=== PATIENT | female | born 1990 | race Caucasian/White ===

== ENCOUNTER 2017-11-11 23:55 | Emergency (ER) | payer OTHER ==
[2017-11-12 00:01] VITALS: BP 119/90
--- NOTE | 2017-11-12 00:04 | EDM.PDOC ---
ED HPI GENERAL MEDICAL PROBLEM - General Chief Complaint: Head Injury Stated Complaint: [facility] Time Seen by Provider: 11/12/17 00:04 Source of Information: Reports: Patient History Limitations: Reports: Intoxication - History of Present Illness INITIAL COMMENTS - FREE TEXT/NARRATIVE: 27-year-old female presents to the ED per ambulance after reportedly falling backwards from the standing position. This is provided by the patient. She fell backward striking the back of her head on the bar room floor. Questionable whether there was temporary loss of consciousness. She has a throbbing pounding headache with associated nausea without vomiting at this time. She denies any other injuries. Of note the patient is significantly intoxicated by alcohol with dysarthric speech and nystagmus. She complains about pain across the occipital aspect of her scalp. Denies any neck pain. Range of motion of her neck is normal. No other injuries apparent Onset: Today Onset Date: 11/11/17 Onset Time: 23:40 Duration: Minutes: Location: Reports: Head (Occipital aspect of her head) Quality: Reports: Ache, Throbbing, Other Severity: Moderate (Pounding headache) Improves with: Reports: Rest Worsens with: Reports: Movement Context: Reports: Other (Intoxicated by alcohol and apparently just tipped over backwards falling to the floor from a standing position.). Denies: Activity, Exercise, Lifting, Sick Contact, Trauma Associated Symptoms: Reports: Headaches, Nausea/Vomiting (Nausea without vomiting). 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 Social & Family History - Family History OBGYN: Reports: Endometriosis, Other (See Below) Other OBGYN Family History: ovarian cancer ,cancer polyps Musculoskeletal: Reports: Arthritis Neurological: Reports: None Endocrine/Metabolic: Reports: Diabetes, type II Hematologic: Reports: Anemia Dermatologic: Reports: Eczema Oncologic: Reports: Ovarian, Other (See Below) Other Oncologic Family History: melanoma on father - Living Situation & Occupation Living situation: Reports: Single Occupation: Employed ED ROS GENERAL - Review of Systems Review Of Systems: See Below Constitutional: Reports: No Symptoms HEENT: Reports: Contact Lenses Respiratory: Reports: No Symptoms Cardiovascular: Reports: No Symptoms Endocrine: Reports: No Symptoms GI/Abdominal: Reports: No Symptoms : Reports: No Symptoms Musculoskeletal: Denies: Neck Pain, Shoulder Pain, Arm Pain, Back Pain, Hand Pain, Leg Pain, Foot Pain, Joint Pain, Joint Swelling Skin: Reports: No Symptoms Neurological: Reports: Headache, Difficulty Walking Psychiatric: Reports: No Symptoms Hematologic/Lymphatic: Reports: No Symptoms Immunologic: Reports: No Symptoms ED EXAM, HEAD INJURY - Physical Exam Exam: See Below Exam Limited By: Intoxication (By alcohol.) General Appearance: Alert Head: Scalp Hematoma (Mild hematoma of the occipital scalp midline.), Scalp Tenderness, Other (No open wounds or lacerations). No: Active Bleeding ( Occipital scalp midline), Adkins's Sign, Flap, Facial Abrasions Nexus Criteria: No: Posterior, Midline Cervical Tenderness, Evidence of Intoxication, Altered Level of Consciousness, Focal Neurological Deficit, Painful Distraction Injuries Eyes: Bilateral Eye: Nystagmus (On bilateral lateral gaze.) Ears: Normal TMs Nose: Other (Nose ring anterior naris with no signs of trauma.) Throat/Mouth: Normal Inspection, Normal Lips, Normal Teeth, Normal Oropharynx, Other (No dental or tongue injuries.) Neck: Non-Tender, Full Range of Motion, Normal Alignment, Normal Inspection Respiratory: No Respiratory Distress, Lungs Clear, Normal Breath Sounds, No Accessory Muscle Use, Chest Non-Tender Cardiovascular: Normal Peripheral Pulses, Regular Rate, Rhythm, No Gallop, No Murmur GI/Abdominal Exam: Normal Bowel Sounds, Soft, Non-Tender, No Organomegaly Extremities: Normal Inspection, Normal Range of Motion, Non-Tender, No Pedal Edema, Other (No evidence injuries to her elbows wrists hands or and shoulders. Knees are normal hips are normal) Neurologic: Other (Ataxic gait) Skin: Normal Color, Warm/Dry - [place] Coma Score Best Eye Response (Farnsworth): (4) Open Spontaneously Best Verbal Response (Patrice): (5) Oriented Best Motor Response (Patrice): (6) Obeys Commands Farnsworth Total: 15 Course - Vital Signs Last Recorded V/S: Last Vital Signs Temp 35.9 C 11/11/17 23:56 Pulse 90 11/11/17 23:56 Resp 18 11/11/17 23:56 BP 119/90 11/11/17 23:56 Pulse Ox 99 11/11/17 23:56 - Orders/Labs/Meds Orders: Active Orders 24 hr Category Date Time Status Head wo Cont [CT] Stat Exams 11/12/17 00:16 Taken Meds: Medications Discontinued Medications Generic Name Dose Route Start Last Admin Trade Name Gadiel PRN Reason Stop Dose Admin Ondansetron HCl 4 mg 11/12/17 00:23 11/12/17 00:39 Zofran Odt PO 11/12/17 00:24 4 mg ONETIME ONE Administration - Radiology Interpretation Free Text/Narrative:: 27-year-old female reports to the ED per ambulance after falling in a local bar. Apparently she simply fell over backward striking the occipital aspect of her head on the bar room floor. It's questionable whether is transient loss of conscious. The details of what happened to her fuzzy because she is very impaired by alcohol. Clinically she shows no signs of neck injury. She does have a mild scalp hematoma of the exceptional scalp without open wound or active bleeding. CT head to be done since she is nauseated and has a severe headache. - Re-Assessments/Exams Free Text/Narrative Re-Assessment/Exam: 11/12/17 01:27 CT of the head reported as normal by the red. I had some concerns about a small intraparenchymal hemorrhage at the occipital prominence that this may be a variation of normal. She'll be discharged to home in the care of her boyfriend but he too is impaired by alcohol and they will be taking a cab home. Departure - Departure Time of Disposition: 01:28 Disposition: Home, Self-Care 01 Condition: Fair Clinical Impression: Minor closed head injury Fall Qualifiers: Encounter type: initial encounter Qualified Code(s): W19.XXXA - Unspecified fall, initial encounter - Discharge Information *PRESCRIPTION DRUG MONITORING PROGRAM REVIEWED*: No *COPY OF PRESCRIPTION DRUG MONITORING REPORT IN PATIENT DAMIEN: No Forms: ED Department Discharge Additional Instructions: Evaluation in the emergency room this morning in regards to a fall at one of the local bars. History is that she fell backwards directly onto the back of your head. No reported loss of consciousness . Reportedly mildly dazed. Associated nausea and headache when you arrived in the ED. Probable small scalp hematoma over the occipital scalp appreciated on exam. Neck showed no signs of injury. You had full unopposed range of motion and no other injuries were identified on exam. You are of course significantly inebriated by alcohol. CT scan of your head was therefore performed to rule out any intracranial bleeding or skull fractures and none were found. CT of the brain and head was found to be within normal limits. May use Tylenol or Motrin for headache relief as needed. You're given Zofran 4 mg under the tongue in the ED for nausea relief. Chest home to sleep. Expect neck muscles to perhaps be more stiff and sore tomorrow and perhaps the next day. If you have vomiting more than twice or worsening headache over the next 12-24 hours. - My Orders Last 24 Hours: My Active Orders 11/12/17 00:16 Head wo Cont [CT] Stat - Assessment/Plan Last 24 Hours: My Active Orders 11/12/17 00:16 Head wo Cont [CT] Stat
[2017-11-12] MEDS ORDERED: Ondansetron 4 MG Tab.DIS PO ONE (00:23)
--- NOTE | 2017-11-14 19:39 | CT ---
Head CT Technique: Multiple axial sections through the brain were obtained. Intravenous contrast was not utilized. Comparison: No prior intracranial imaging is available. Findings: Ventricles along with basal cisterns and sulci over the convexities are within normal limits for the patient's age. No abnormal parenchymal densities are seen. No evidence of intracranial hemorrhage. No midline shift or mass effect is seen. Bone window settings were reviewed which show the visualized sinuses to appear clear. No acute calvarial abnormality is seen. Impression: 1. Nothing acute is seen on noncontrast head CT study. Diagnostic code #1 I agree with preliminary report issued by [facility] ([facility] report finalized on 11/12/17, 2:10 AM Central Time)
== END 2017-11-12 01:34 | disposition home or self-care (01) ==
LOC: JD.ED 23:55
DX: S00.03XA Contusion of scalp, initial encounter (principal); F10.129 Alcohol abuse with intoxication, unspecified; W01.198A Fall on same level from slipping, tripping and stumbling with subsequent striking against other object, initial encounter; Z91.040 Latex allergy status
CPT/HCPCS: 70450; 99285; A9270

== ENCOUNTER 2019-02-26 10:57 | Emergency (ER) | payer OTHER ==
[2019-02-26 11:20] VITALS: BP 123/81; PULSE 65
[2019-02-26] MEDS ORDERED: Ondansetron 4 MG/2 ML SDV IVPUSH ONE (11:46)
[2019-02-26] MEDS ORDERED: methylPREDNISolone Sodium Succinate 125 MG/2 ML SDV IVPUSH ONE (11:46)
[2019-02-26] MEDS ORDERED: Sodium Chloride 0.9% 10 ML Syringe FLUSH PRN (11:46)
[2019-02-26] MEDS ORDERED: Sodium Chloride 0.9% 1,000 ML IV SCH (12:00)
[2019-02-26] MEDS ORDERED: Meclizine 12.5 MG Tab PO ONE (13:08)
--- NOTE | 2019-02-26 13:11 | EDM.PDOC ---
ED HPI GENERAL MEDICAL PROBLEM - General Chief Complaint: Neuro Symptoms/Deficits Stated Complaint: VOMITING Time Seen by Provider: 02/26/19 11:37 Source of Information: Reports: Patient, RN Notes Reviewed - History of Present Illness INITIAL COMMENTS - FREE TEXT/NARRATIVE: 28 year old female with onset of vertigo last evening when traveling. Continues with that today, better to lie still, worse with any type of motion. No [place], ear pain, fever or chills. She has had severe nausea and some vomiting. Headache Pain Score (Numeric/FACES): 8 - Related Data Allergies Allergy/AdvReac Type Severity Reaction Status Date / Time latex Allergy Other Verified 02/26/19 11:20 Home Meds: Home Meds . 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 Dermatologic History: Reports: Cellulitis Social & Family History - Family History OBGYN: Reports: Endometriosis, Other (See Below) Other OBGYN Family History: ovarian cancer ,cancer polyps Musculoskeletal: Reports: Arthritis Neurological: Reports: None Endocrine/Metabolic: Reports: Diabetes, type II Hematologic: Reports: Anemia Dermatologic: Reports: Eczema Oncologic: Reports: Ovarian, Other (See Below) Other Oncologic Family History: melanoma on father - Tobacco Use Smoking Status *Q: Never Smoker - Living Situation & Occupation Living situation: Reports: Single Occupation: Employed ED ROS GENERAL - Review of Systems Review Of Systems: See Below Constitutional: Denies: Fever, Chills, Diaphoresis HEENT: Denies: Ear Discharge, Ear Pain, Throat Pain Respiratory: Denies: Shortness of Breath Cardiovascular: Denies: Chest Pain GI/Abdominal: Reports: Nausea, Vomiting. Denies: Abdominal Pain Musculoskeletal: Denies: Neck Pain, Shoulder Pain, Arm Pain, Back Pain Skin: Denies: Rash Neurological: Reports: Dizziness. Denies: Headache, Numbness, Tingling, Trouble Speaking, Weakness ED EXAM, DIZZINESS - Physical Exam Exam: See Below General Appearance: Alert, Mild Distress Eye Exam: Bilateral Eye: PERRL Ears: Normal External Exam Nose: Normal Inspection Throat/Mouth: Normal Inspection, Normal Oropharynx Head Exam: Atraumatic. No: Facial Swelling Vertigo: reproducible (with motion to right and left) Neck: Normal Inspection, Supple Respiratory/Chest: No Respiratory Distress, Lungs Clear, Normal Breath Sounds Cardiovascular: Regular Rate, Rhythm Neurological: Alert, No Motor/Sensory Deficits Extremities: Normal Inspection, Normal Range of Motion Skin Exam: Warm, Dry, Normal Color Course - Vital Signs Last Recorded V/S: Last Vital Signs Temp 98.2 F 02/26/19 11:18 Pulse 65 02/26/19 11:18 Resp 16 02/26/19 11:18 BP 123/81 02/26/19 11:18 Pulse Ox 100 02/26/19 11:18 - Orders/Labs/Meds Orders: Active Orders 24 hr Category Date Time Status Peripheral IV Care [RC] . DIRECTED Care 02/26/19 11:47 Active Sodium Chloride 0.9% [Normal Saline] 1,000 ml Med 02/26/19 12:00 Active IV ONETIME Sodium Chloride 0.9% [Saline Flush] Med 02/26/19 11:46 Active 10 ml FLUSH ASDIRECTED PRN Peripheral IV Insertion Adult [OM.PC] Stat Oth 02/26/19 11:46 Ordered Medication Orders Sodium Chloride (Normal Saline) 1,000 mls @ 999 mls/hr IV ONETIME [facility] Last Admin: 02/26/19 12:04 Dose: 999 mls/hr Sodium Chloride (Saline Flush) 10 ml FLUSH ASDIRECTED PRN PRN Reason: Keep Vein Open Last Admin: 02/26/19 12:11 Dose: 10 ml Labs: Laboratory Tests 02/26/19 02/26/19 Range/Units 12:05 Unknown WBC 6.92 (3.98-10.04) K/mm3 RBC 4.34 (3.98-5.22) M/mm3 Hgb 13.7 D (11.2-15.7) gm/dl Hct 38.5 (34.1-44.9) % MCV 88.7 (79.4-94.8) fl MCH 31.6 (25.6-32.2) pg MCHC 35.6 H (32.2-35.5) g/dl RDW Std Deviation 38.4 (36.4-46.3) fL Plt Count 213 (182-369) K/mm3 MPV 10.0 (9.4-12.3) fl Neut % (Auto) 73.4 H (34.0-71.1) % Lymph % (Auto) 16.5 L (19.3-51.7) % [place] % (Auto) 8.1 (4.7-12.5) % Eos % (Auto) 1.6 (0.7-5.8) Baso % (Auto) 0.3 (0.1-1.2) % Neut # (Auto) 5.08 (1.56-6.13) K/mm3 Lymph # (Auto) 1.14 L (1.18-3.74) K/mm3 [place] # (Auto) 0.56 H (0.24-0.36) K/mm3 Eos # (Auto) 0.11 (0.04-0.36) K/mm3 Baso # (Auto) 0.02 (0.01-0.08) K/mm3 Sodium 136 (136-145) mEq/L Potassium 4.1 (3.5-5.1) mEq/L Chloride 102 (98-107) mEq/L Carbon Dioxide 26 (21-32) mEq/L Anion Gap 12.1 (5-15) BUN 12 (7-18) mg/dL Creatinine 0.6 (0.55-1.02) mg/dL Est Cr Clr Drug Dosing 113.95 mL/min Estimated GFR (MDRD) > 60 (>60) mL/min BUN/Creatinine Ratio 20.0 H (14-18) Glucose 99 (74-106) mg/dL Calcium 9.4 (8.5-10.1) mg/dL Total Bilirubin 0.7 (0.2-1.0) mg/dL AST 17 (15-37) U/L ALT 29 (14-59) U/L Alkaline Phosphatase 74 (46-116) U/L Total Protein 7.8 (6.4-8.2) g/dl Albumin 4.4 (3.4-5.0) g/dl Globulin 3.4 gm/dL Albumin/Globulin Ratio 1.3 (1-2) Meds: Medications Generic Name Dose Route Start Last Admin Trade Name Freq PRN Reason Stop Dose Admin Sodium Chloride 1,000 mls @ 999 mls/hr 02/26/19 12:00 02/26/19 12:04 Normal Saline IV 999 mls/hr ONETIME CRISTA Administration Sodium Chloride 10 ml 02/26/19 11:46 02/26/19 12:11 Saline Flush FLUSH 10 ml ASDIRECTED PRN Administration Keep Vein Open Discontinued Medications Generic Name Dose Route Start Last Admin Trade Name Gadiel PRN Reason Stop Dose Admin Diazepam 2 mg 02/26/19 11:46 02/26/19 12:11 Valium IVPUSH 02/26/19 11:47 2 mg ONETIME ONE Administration Meclizine HCl 12.5 mg 02/26/19 13:08 02/26/19 13:22 Antivert PO 02/26/19 13:09 12.5 mg ONETIME ONE Administration Methylprednisolone Sodium Succinate 125 mg 02/26/19 11:46 02/26/19 12:04 Solu-Medrol IVPUSH 02/26/19 11:47 125 mg ONETIME ONE Administration Ondansetron HCl 4 mg 02/26/19 11:46 02/26/19 12:04 Zofran IVPUSH 02/26/19 11:47 4 mg ONETIME ONE Administration - Re-Assessments/Exams Free Text/Narrative Re-Assessment/Exam: 02/26/19 13:49 Feeling somewhat better after IV meds, labs are good, discharge instr. as documented. Departure - Departure Time of Disposition: 13:08 Disposition: Home, Self-Care 01 Condition: Fair Clinical Impression: Labyrinthitis - Discharge Information Referrals: PCP,None [Primary Care Provider] - Forms: ED Department Discharge, ED Return to Work/School Form Additional Instructions: rest, move slowly and carefully. Antivert or meclizine 12.5 mg, 1/2 of a 25 mg tablet twice daily until vertigo and nausea has completely resolved. That is available OTC, you will need to ask your pharmacist for that medication. See Dr Edu Dye, production administrator, [facility], [place] if not getting back to normal within 2 to 3 days as expected. Return to ED as needed if symptoms worsening in any way. - My Orders Last 24 Hours: My Active Orders 02/26/19 11:46 Sodium Chloride 0.9% [Saline Flush] 10 ml FLUSH ASDIRECTED PRN Peripheral IV Insertion Adult [OM.PC] Stat 02/26/19 11:47 Peripheral IV Care [RC] . DIRECTED 02/26/19 12:00 Sodium Chloride 0.9% [Normal Saline] 1,000 ml IV ONETIME - Assessment/Plan Last 24 Hours: My Active Orders 02/26/19 11:46 Sodium Chloride 0.9% [Saline Flush] 10 ml FLUSH ASDIRECTED PRN Peripheral IV Insertion Adult [OM.PC] Stat 02/26/19 11:47 Peripheral IV Care [RC] . DIRECTED 02/26/19 12:00 Sodium Chloride 0.9% [Normal Saline] 1,000 ml IV ONETIME
== END 2019-02-26 13:24 | disposition home or self-care (01) ==
LOC: JD.ED 10:57
DX: H83.09 Labyrinthitis, unspecified ear (principal); Z91.040 Latex allergy status
CPT/HCPCS: 36415; 80053; 85025; 96361; 96374; 96375; 99284; A9270; J2405; J2930; J3360; J7040; 99283; J7030

== ENCOUNTER 2023-10-23 00:49 | Emergency (ER) | payer OTHER ==
[2023-10-23 02:23] LABS: BASOPHILS ABSOLUTE AUTO 0.1 K/mm3 (0.0-0.2); EOSINOPHILS ABSOLUTE AUTO 0.2 K/mm3 (0.0-0.4); EOSINOPHILS PERCENT AUTO 3.5 % (0.0-6.0); HEMATOCRIT 37.1 % (37.0-47.0); IMMATURE GRAN ABSOLUTE AUTO 0.01 K/mm3 (0.00-0.05); IMMATURE GRAN PERCENT AUTO 0.2 % (0.0-0.4); LYMPHOCYTES PERCENT AUTO 20.5 % (24.0-44.0); MEAN CORPUSCULAR HEMOGLOBIN 33.1 pg (28.0-32.0); MEAN CORPUSCULAR VOLUME 94.4 fl (83.0-99.0); MEAN PLATELET VOLUME 8.9 fl (9.4-12.3); MONOCYTES ABSOLUTE AUTO 0.4 K/mm3 (0.0-0.8); MONOCYTES PERCENT AUTO 8.1 % (0.0-8.0); NEUTROPHILS ABSOLUTE AUTO 3.4 K/mm3 (1.8-7.7); NEUTROPHILS PERCENT AUTO 66.7 % (41.0-71.0); PLATELET COUNT,PLT 143 K/mm3 (150-400); RED BLOOD CELL COUNT 3.93 M/mm3 (4.10-5.30); WHITE BLOOD CELL COUNT,WBC 5.08 K/mm3 (3.9-11.3)
[2023-10-23 02:43] LABS: A/G RATIO 1.2 (1-2); ALBUMIN 4.1 g/dl (3.4-5.0); ANION GAP 16.1 (5-15); BILIRUBIN TOTAL 0.2 mg/dL (0.2-1.0); BUN/CREATININE RATIO 18.3 (14-18); CALCIUM 8.9 mg/dL (8.5-10.1); CREATININE 0.6 mg/dL (0.55-1.02); EST CRCL DRUG DOSING (CG) 107.45 mL/min; MAGNESIUM 1.8 mg/dL (1.8-2.4); POTASSIUM,K 4.1 mEq/L (3.5-5.1); PROTEIN TOTAL,TP 7.6 g/dl (6.4-8.2)
[2023-10-23] MEDS: Iopamidol 612 MG/ML 100 ML Bottle IVPUSH ONE (03:18)
[2023-10-23 04:06] LABS: APPEARANCE,URINE CLEAR (Clear); BILIRUBIN,URINE NEGATIVE (Negative); COLOR,URINE YELLOW (Yellow); GLUCOSE,URINE NEGATIVE (Negative); KETONES,URINE NEGATIVE (Negative); LEUKOCYTE ESTERASE,URINE NEGATIVE (Negative); NITRITE,URINE NEGATIVE (Negative); OCCULT BLOOD,URINE 2+ (Negative); PH,URINE 7.5 (5.0-8.0); PROTEIN,URINE TRACE (Negative); UROBILINOGEN,URINE 0.2 (0.2-1.0)
[2023-10-23 04:17] LABS: AMORPHOUS SEDIMENT,URINE MODERATE /hpf (NOT SEEN); BACTERIA,URINE FEW /hpf (FEW); MUCUS,URINE NOT SEEN /hpf (FEW); WBC,URINE 0-5 /hpf (0-5)
[2023-10-23 04:33] VITALS: BP 117/59; PULSE 78
== END 2023-10-23 04:32 | disposition home or self-care (01) ==
LOC: JD.ED 00:49
DX: K52.9 Noninfective gastroenteritis and colitis, unspecified (principal); F17.210 Nicotine dependence, cigarettes, uncomplicated; Z91.040 Latex allergy status
CPT/HCPCS: 36415; 74177; 80053; 81001; 83735; 84703; 85025; 99284; Q9967

== ENCOUNTER 2023-10-24 14:04 | Emergency (ER) | payer OTHER ==
[2023-10-24 15:01] LABS: APPEARANCE,URINE CLEAR (Clear); BASOPHILS ABSOLUTE AUTO 0.1 K/mm3 (0.0-0.2); BASOPHILS PERCENT AUTO 1.2 % (0.0-1.0); BILIRUBIN,URINE NEGATIVE (Negative); COLOR,URINE YELLOW (Yellow); EOSINOPHILS ABSOLUTE AUTO 0.2 K/mm3 (0.0-0.4); EOSINOPHILS PERCENT AUTO 4.7 % (0.0-6.0); GLUCOSE,URINE NEGATIVE (Negative); HEMATOCRIT 41.1 % (37.0-47.0); HEMOGLOBIN 14.6 gm/dl (12.0-16.0); IMMATURE GRAN ABSOLUTE AUTO 0.01 K/mm3 (0.00-0.05); IMMATURE GRAN PERCENT AUTO 0.2 % (0.0-0.4); KETONES,URINE NEGATIVE (Negative); LEUKOCYTE ESTERASE,URINE NEGATIVE (Negative); LYMPHOCYTES ABSOLUTE AUTO 1.5 K/mm3 (1.0-4.8); LYMPHOCYTES PERCENT AUTO 36.1 % (24.0-44.0); MEAN CORPUSCULAR HEMOGLOBIN 33.1 pg (28.0-32.0); MEAN CORPUSCULAR HGB CONC 35.5 g/dl (32.0-36.0); MEAN CORPUSCULAR VOLUME 93.2 fl (83.0-99.0); MEAN PLATELET VOLUME 8.9 fl (9.4-12.3); MONOCYTES ABSOLUTE AUTO 0.4 K/mm3 (0.0-0.8); MONOCYTES PERCENT AUTO 9.4 % (0.0-8.0); NEUTROPHILS PERCENT AUTO 48.4 % (41.0-71.0); NITRITE,URINE NEGATIVE (Negative); OCCULT BLOOD,URINE TRACE-LYSED (Negative); PH,URINE 6.5 (5.0-8.0); PLATELET COUNT,PLT 165 K/mm3 (150-400); PROTEIN,URINE 2+ (Negative); RED BLOOD CELL COUNT 4.41 M/mm3 (4.10-5.30); UROBILINOGEN,URINE 0.2 (0.2-1.0); WHITE BLOOD CELL COUNT,WBC 4.04 K/mm3 (3.9-11.3)
[2023-10-24] MEDS: Sodium Chloride 0.9% 1,000 ML IV ONE (15:52)
[2023-10-24] MEDS: Ketorolac 30 MG/ML SDV IVPUSH ONE (15:52)
[2023-10-24] MEDS: Sodium Chloride 0.9% 10 ML Syringe FLUSH PRN (15:54)
[2023-10-24 15:58] LABS: A/G RATIO 1.2 (1-2); ALANINE AMINOTRANSFERASE,ALT 149 U/L (14-59); ALBUMIN 4.8 g/dl (3.4-5.0); ALKALINE PHOSPHATASE 86 U/L (46-116); ANION GAP 18.9 (5-15); ASPARTATE AMNIOTRANSFERASE,AST 212 U/L (15-37); BILIRUBIN TOTAL 0.3 mg/dL (0.2-1.0); BLOOD UREA NITROGEN,BUN 8 mg/dL (7-18); BUN/CREATININE RATIO 11.4 (14-18); C-REACTIVE PROTEIN <0.05 mg/dL (<0.30); CALCIUM 9.2 mg/dL (8.5-10.1); CARBON DIOXIDE,CO2 25 mEq/L (21-32); CHLORIDE,CL 100 mEq/L (98-107); CREATININE 0.7 mg/dL (0.55-1.02); ESTIMATED GFR 119 mL/min (>60); GLUCOSE RANDOM 90 mg/dL (70-99); LIPASE 54 U/L (16-77); POTASSIUM,K 3.9 mEq/L (3.5-5.1); PROTEIN TOTAL,TP 8.7 g/dl (6.4-8.2); SODIUM,NA 140 mEq/L (136-145)
[2023-10-24 16:02] LABS: LACTIC ACID 2.6 mmol/L (0.4-2.0)
[2023-10-24] MEDS: Iopamidol 612 MG/ML 100 ML Bottle IVPUSH ONE (16:32)
[2023-10-24 16:34] LABS: BACTERIA,URINE FEW /hpf (FEW); MUCUS,URINE RARE /hpf (FEW); RBC,URINE 0-5 /hpf (0-5); SQUAMOUS EPITHELIAL CELLS,UR 0-5 /hpf (0-5); WBC,URINE 0-5 /hpf (0-5)
[2023-10-24] MEDS ORDERED: Ondansetron 4 MG/2 ML SDV IVPUSH ONE (17:52)
[2023-10-24] MEDS ORDERED: Morphine 2 MG/ML SYRINGE IVPUSH ONE (17:52)
[2023-10-24] MEDS ORDERED: metroNIDAZOLE/Normal Saline 500 MG in Premix Bag 1 BAG IV ONE (17:53)
[2023-10-24] MEDS ORDERED: Levofloxacin/Dextrose 5%-Water 500 MG in Premix Bag 1 BAG IV ONE (17:53)
[2023-10-24 20:02] VITALS: BP 114/78; PULSE 73
== END 2023-10-24 19:10 | disposition home or self-care (01) ==
LOC: JD.ED 14:04
DX: K52.9 Noninfective gastroenteritis and colitis, unspecified (principal); E86.9 Volume depletion, unspecified; Z91.040 Latex allergy status
CPT/HCPCS: 36415; 74177; 80053; 80307; 81001; 83605; 83690; 83735; 84703; 85025; 86140; 96361; 96374; 99284; J1885; J3490; J7030; Q9967

== ENCOUNTER 2023-11-21 17:26 | Emergency (ER) | payer OTHER ==
[2023-11-21] MEDS ORDERED: Sodium Chloride 0.9% 10 ML Syringe FLUSH PRN (18:32)
[2023-11-21 18:56] LABS: BASOPHILS PERCENT AUTO 0.5 % (0.0-1.0); EOSINOPHILS ABSOLUTE AUTO 0.1 K/mm3 (0.0-0.4); EOSINOPHILS PERCENT AUTO 1.9 % (0.0-6.0); HEMATOCRIT 37.7 % (37.0-47.0); HEMOGLOBIN 13.5 gm/dl (12.0-16.0); IMMATURE GRAN ABSOLUTE AUTO 0.02 K/mm3 (0.00-0.05); IMMATURE GRAN PERCENT AUTO 0.3 % (0.0-0.4); LYMPHOCYTES ABSOLUTE AUTO 1.6 K/mm3 (1.0-4.8); MEAN CORPUSCULAR HEMOGLOBIN 33.3 pg (28.0-32.0); MEAN CORPUSCULAR HGB CONC 35.8 g/dl (32.0-36.0); MEAN CORPUSCULAR VOLUME 92.9 fl (83.0-99.0); MEAN PLATELET VOLUME 9.1 fl (9.4-12.3); MONOCYTES ABSOLUTE AUTO 0.4 K/mm3 (0.0-0.8); MONOCYTES PERCENT AUTO 5.8 % (0.0-8.0); NEUTROPHILS ABSOLUTE AUTO 5.2 K/mm3 (1.8-7.7); NEUTROPHILS PERCENT AUTO 69.5 % (41.0-71.0); PLATELET COUNT,PLT 120 K/mm3 (150-400); RED BLOOD CELL COUNT 4.06 M/mm3 (4.10-5.30); WHITE BLOOD CELL COUNT,WBC 7.41 K/mm3 (3.9-11.3)
[2023-11-21] MEDS: Sodium Chloride 0.9% 1,000 ML IV STA (19:18)
[2023-11-21] MEDS: Ondansetron 4 MG/2 ML SDV IVPUSH ONE (19:19)
[2023-11-21] MEDS: HYDROmorphone 0.5 MG/0.5 ML Syringe IVPUSH ONE (19:21)
[2023-11-21 19:26] LABS: A/G RATIO 1.1 (1-2); ALANINE AMINOTRANSFERASE,ALT 81 U/L (14-59); ALBUMIN 4.1 g/dl (3.4-5.0); ALKALINE PHOSPHATASE 71 U/L (46-116); ANION GAP 17.5 (5-15); ASPARTATE AMNIOTRANSFERASE,AST 94 U/L (15-37); BILIRUBIN TOTAL 0.2 mg/dL (0.2-1.0); BLOOD UREA NITROGEN,BUN 10 mg/dL (7-18); BUN/CREATININE RATIO 16.7 (14-18); CALCIUM 8.6 mg/dL (8.5-10.1); CARBON DIOXIDE,CO2 24 mEq/L (21-32); CHLORIDE,CL 105 mEq/L (98-107); CREATININE 0.6 mg/dL (0.55-1.02); EST CRCL DRUG DOSING (CG) 107.45 mL/min; ESTIMATED GFR 123 mL/min (>60); ETHANOL BLOOD MEDICAL 0.41 gm% (0.00); GLUCOSE RANDOM 109 mg/dL (70-99); POTASSIUM,K 3.5 mEq/L (3.5-5.1); PROTEIN TOTAL,TP 7.8 g/dl (6.4-8.2); SODIUM,NA 143 mEq/L (136-145)
[2023-11-21 19:27] LABS: C-REACTIVE PROTEIN < 0.05 mg/dL (<0.30)
[2023-11-21 19:44] LABS: BILIRUBIN,URINE NEGATIVE (Negative); COLOR,URINE YELLOW (Yellow); GLUCOSE,URINE NEGATIVE (Negative); KETONES,URINE NEGATIVE (Negative); LEUKOCYTE ESTERASE,URINE 1+ (Negative); NITRITE,URINE NEGATIVE (Negative); OCCULT BLOOD,URINE TRACE-LYSED (Negative); PH,URINE 6.5 (5.0-8.0); PROTEIN,URINE NEGATIVE (Negative); UROBILINOGEN,URINE 0.2 (0.2-1.0)
[2023-11-21 20:10] LABS: APPEARANCE,URINE SLT CLOUDY (Clear); WBC,URINE 50-75 /hpf (0-5)
[2023-11-21 20:11] LABS: BACTERIA,URINE MANY /hpf (FEW); MUCUS,URINE FEW /hpf (FEW)
[2023-11-21] MEDS: Sodium Chloride 0.9% 10 ML Syringe FLUSH ONE (20:16)
[2023-11-21] MEDS: Iopamidol 612 MG/ML 100 ML Bottle IVPUSH ONE (20:16)
[2023-11-21] MEDS: Ketorolac 30 MG/ML SDV IVPUSH ONE (21:54)
[2023-11-22 01:53] VITALS: BP 114/79; PULSE 76
== END 2023-11-21 22:05 | disposition home or self-care (01) ==
LOC: SUPCPDRO 17:26 → JD.ED 17:26
DX: N30.00 Acute cystitis without hematuria (principal); D25.9 Leiomyoma of uterus, unspecified; R10.30 Lower abdominal pain, unspecified; F10.120 Alcohol abuse with intoxication, uncomplicated; F17.210 Nicotine dependence, cigarettes, uncomplicated; Z86.16 Personal history of COVID-19; Z91.040 Latex allergy status
CPT/HCPCS: 36415; 74177; 80053; 80307; 81001; 84703; 85025; 86140; 87086; 96374; 96375; 99284; J1170; J1885; J2405; J3490; J7030; Q9967

== ENCOUNTER → 2024-01-31 | Day surgery (SDC) | payer OTHER ==
[~2024-01-31] MED LIST: Dexamethasone 4 MG/ML 5 ML MDV ONE; HYDROmorphone 0.5 MG/0.5 ML Syringe IVPUSH PRN; HYDROmorphone 0.5 MG/0.5 ML Syringe ONE; Ketorolac 30 MG/ML SDV ONE; Lactated Ringers 1,000 ML ONE; Lidocaine 1% 5 ML VIAL ONE; Midazolam 1 MG/ML 2 ML SDV ONE; Ondansetron 4 MG/2 ML SDV ONE; Propofol 200 MG/20 ML SDV ONE; Rocuronium 50 MG/5 ML Vial ONE; Sodium Chloride 0.9% 10 ML Syringe FLUSH PRN; Sodium Chloride 0.9% 10 ML Syringe FLUSH SCH; Sugammadex Sodium 200 MG/2 ML VIAL IV ONE; ceFAZolin 2 GM Vial ONE; dexmedeTOMIDine HCl 200 MCG/2 ML SDV ONE; ePHEDrine 50 MG/ML SDV ONE; fentaNYL 250 MCG/5 ML SDV ONE
[2024-01-31] MEDS: Lactated Ringers 1,000 ML IV SCH (06:25)
[2024-01-31 06:35] LABS: BASOPHILS PERCENT AUTO 0.5 % (0.0-1.0); EOSINOPHILS ABSOLUTE AUTO 0.2 K/mm3 (0.0-0.4); EOSINOPHILS PERCENT AUTO 2.9 % (0.0-6.0); HEMATOCRIT 35.2 % (37.0-47.0); HEMOGLOBIN 12.5 gm/dl (12.0-16.0); IMMATURE GRAN ABSOLUTE AUTO 0.01 K/mm3 (0.00-0.05); IMMATURE GRAN PERCENT AUTO 0.2 % (0.0-0.4); MEAN CORPUSCULAR HGB CONC 35.5 g/dl (32.0-36.0); MEAN CORPUSCULAR VOLUME 92.9 fl (83.0-99.0); MEAN PLATELET VOLUME 9.9 fl (9.4-12.3); MONOCYTES ABSOLUTE AUTO 0.8 K/mm3 (0.0-0.8); MONOCYTES PERCENT AUTO 12.3 % (0.0-8.0); NEUTROPHILS ABSOLUTE AUTO 4.2 K/mm3 (1.8-7.7); NEUTROPHILS PERCENT AUTO 68.1 % (41.0-71.0); PLATELET COUNT,PLT 171 K/mm3 (150-400); RED BLOOD CELL COUNT 3.79 M/mm3 (4.10-5.30); WHITE BLOOD CELL COUNT,WBC 6.11 K/mm3 (3.9-11.3)
[2024-01-31] MEDS: Acetaminophen 325 MG Tab PO ONE (06:49)
[2024-01-31 06:52] LABS: ANION GAP 16.2 (5-15); CALCIUM 9.4 mg/dL (8.5-10.1); CREATININE 0.7 mg/dL (0.55-1.02); EST CRCL DRUG DOSING (CG) 92.1 mL/min; POTASSIUM,K 3.2 mEq/L (3.5-5.1)
[2024-01-31] MEDS: EPINEPHrine 1 MG/ML SDV ONE (07:38)
[2024-01-31] MEDS: Bupivacaine 0.5% 30 ML SDV ONE (07:38)
[2024-01-31] MEDS: Bupivacaine 0.25% 10 ML SDV ONE (07:38)
[2024-01-31] MEDS: fentaNYL 100 MCG/2 ML SDV IVPUSH PRN (09:15)
[2024-01-31] MEDS: Acetaminophen/oxyCODONE 325-5 MG Tab PO ONE (10:35)
[2024-01-31 10:52] VITALS: BP 117/72; PULSE 77
== END ==
LOC: JD.SDS 06:15
PROVIDERS: ATTEND Obstetrics & Gynecology
DX: D25.9 Leiomyoma of uterus, unspecified (principal); N83.8 Other noninflammatory disorders of ovary, fallopian tube and broad ligament; F17.210 Nicotine dependence, cigarettes, uncomplicated; Z91.040 Latex allergy status
CPT/HCPCS: 36415; 58552; 80048; 85025; 86850; 86900; 86901; A9270; J0171; J0665; J0690; J1100; J1171; J1885; J2250; J2405; J2704; J3010; J3490; J7120; 00944

== ENCOUNTER 2024-09-27 10:07 | Emergency (ER) | payer OTHER ==
[2024-09-27 10:17] VITALS: BP 140/93; PULSE 82
== END 2024-09-27 12:05 | disposition home or self-care (01) ==
LOC: JD.ED 10:07
DX: R04.0 Epistaxis (principal); Z91.040 Latex allergy status; Z79.899 Other long term (current) drug therapy; Z86.16 Personal history of COVID-19
CPT/HCPCS: 99283; A9270; 99282